=== PATIENT | male | born 1990 | race Caucasian/White ===

== ENCOUNTER 2017-03-17 18:44 | Emergency (ER) | payer BC ==
[2017-03-17 19:03] VITALS: BP 131/79
--- NOTE | 2017-03-25 11:57 | EDM.PDOC ---
ED HPI GENERAL MEDICAL PROBLEM - General Chief Complaint: General Stated Complaint: FISH HOOK Time Seen by Provider: 03/17/17 18:50 Source of Information: Reports: Patient History Limitations: Reports: No Limitations - History of Present Illness INITIAL COMMENTS - FREE TEXT/NARRATIVE: This is a 26yo M here for a fish hook injury of the right hand index finger second knuckle. Patient states he has had a tetanus in the past few years. He denies other concerns today. Onset: Sudden Location: Reports: Upper Extremity, Right Severity: Mild Improves with: Reports: None Worsens with: Reports: Movement - Related Data Allergies Allergy/AdvReac Type Severity Reaction Status Date / Time No Known Allergies Allergy Verified 03/17/17 19:00 Home Meds: Home Meds NK [No Known Home Meds] 03/17/17 [History] Past Medical History - Past Health History Medical/Surgical History: Denies Medical/Surgical History Social & Family History - Tobacco Use Smoking Status *Q: Current Every Day Smoker Years of Tobacco use: 10 Packs/Tins Daily: 0.5 Used Tobacco, but Quit: No Second Hand Smoke Exposure: No - Caffeine Use Caffeine Use: Reports: Coffee, Soda - Recreational Drug Use Recreational Drug Use: No Review of Systems - Review of Systems Review Of Systems: ROS reveals no pertinent complaints other than HPI. ED EXAM, GENERAL - Physical Exam Exam: See Below Exam Limited By: No Limitations General Appearance: Alert, WD/WN, No Apparent Distress Ears: Normal External Exam Nose: Normal Inspection Head: Atraumatic, Normocephalic Neck: Normal Inspection Respiratory/Chest: No Respiratory Distress Cardiovascular: Normal Peripheral Pulses Extremities: Other (fish hook in right hand index finger) ED TRAUMA EXTREMITY PROCEDURES - Foreign Body Removal Consent Obtained: Patient Foreign Body Other Location Comment:: 18ga needle used to track and cover desirae. Fish hook removed without complications. Anesthesia Type: Local Complications:: No Course - Vital Signs Last Recorded V/S: Last Vital Signs Temp 37.7 C 03/17/17 19:05 Pulse 83 03/17/17 19:05 Resp 20 03/17/17 19:05 BP 131/79 03/17/17 19:05 Pulse Ox 100 03/17/17 19:05 - Orders/Labs/Meds Meds: Medications Discontinued Medications Generic Name Dose Route Start Last Admin Trade Name Freq PRN Reason Stop Dose Admin Lidocaine HCl 5 ml 03/17/17 19:00 Xylocaine-Mpf 1% .ROUTE 03/17/17 19:01 .STK-MED ONE Departure - Departure Time of Disposition: 19:30 Disposition: Home, Self-Care 01 Clinical Impression: Fish hook injury of finger - Discharge Information Instructions: Wound Infection, [id number] Referrals: PCP,None [Primary Care Provider] - Forms: ED Department Discharge Additional Instructions: Keep affected area clean and dry, and leave applied dressing in place for next 24 hours. Then remove and apply thin strip of antibiotic ointment and cover with band-aid for next 2-3 days, after that may leave open to air. Be sure to monitor for signs and symptoms of infection present including: increased redness , increased swelling, increased pain or tenderness to touch, foul drainage, and/ or fever present. Should any of these symptoms occur, return to be seen for further treatment. Follow up with regular provider as needed. Call with any questions. - Problem List & Annotations (1) Fish hook injury of finger SNOMED Code(s): 69937779 Code(s): S69.90XA - UNSP INJURY OF UNSP WRIST, HAND AND FINGER(S), INIT ENCNTR Status: Acute Priority: High Qualifiers: Encounter type: initial encounter Laterality: right Qualified Code(s): S69.91XA - Unspecified injury of right wrist, hand and finger(s), initial encounter - Problem List Review Problem List Initiated/Reviewed/Updated: Yes - Assessment/Plan Plan: Counseled on supportive care and wound care. Discussed f/u with PCP or Urgent care if any infection or concerns. Patient agrees to f/u if any concerns.
== END 2017-03-17 19:15 | disposition home or self-care (01) ==
LOC: LB.ED 18:44
DX: S61.240A Puncture wound with foreign body of right index finger without damage to nail, initial encounter (principal); W45.8XXA Other foreign body or object entering through skin, initial encounter; F17.210 Nicotine dependence, cigarettes, uncomplicated
CPT/HCPCS: 99283